=== PATIENT | female | born 1950 | race African-American/Black ===

== ENCOUNTER → 2016-10-16 | Outpatient (CLI) | payer MEDICARE, MEDICAID ==
[~2016-10-16] MED LIST: GADOBENATE DIMEGLUMINE 529 MG/ML 10ML IV ONE; HYDR1TAB4 PO; LORA2TAB2 PO; OXCA300T31 PO
== END | disposition home or self-care (01) ==
LOC: MRI 07:51
PROVIDERS: ATTEND Neurological Surgery
DX: M47.816 Spondylosis without myelopathy or radiculopathy, lumbar region (principal)
CPT/HCPCS: 72158; A9577

== ENCOUNTER → 2016-10-20 | Outpatient (CLI) | payer MEDICARE, MEDICAID ==
[~2016-10-20] MED LIST changes: -GADOBENATE DIMEGLUMINE 529 MG/ML 10ML IV ONE
== END | disposition home or self-care (01) ==
LOC: RAD 08:48
PROVIDERS: ATTEND Neurological Surgery
DX: M47.816 Spondylosis without myelopathy or radiculopathy, lumbar region (principal); M43.26 Fusion of spine, lumbar region
CPT/HCPCS: 72114

== ENCOUNTER → 2017-05-15 | Outpatient (CLI) | payer MEDICARE, MEDICAID | END | disposition home or self-care (01) | LOC: MAMMO 10:19 | PROVIDERS: ATTEND Family Medicine | DX: Z12.31 Encounter for screening mammogram for malignant neoplasm of breast (principal) | CPT/HCPCS: G0202 ==

== ENCOUNTER → 2017-08-21 | Outpatient (CLI) | payer MEDICARE, MEDICAID ==
[~2017-08-21] MED LIST changes: -HYDR1TAB4 PO; -LORA2TAB2 PO; +LOSA100T14 PO; -OXCA300T31 PO; +RISP1TAB26 PO
== END | disposition home or self-care (01) ==
LOC: RAD 11:41
PROVIDERS: ATTEND Neurological Surgery
DX: M47.896 Other spondylosis, lumbar region (principal)
CPT/HCPCS: 72114

== ENCOUNTER → 2017-09-25 | Outpatient (CLI) | payer MEDICARE, MEDICAID | END | disposition home or self-care (01) | LOC: MRI 09:02 | PROVIDERS: ATTEND Neurological Surgery | DX: M47.897 Other spondylosis, lumbosacral region (principal); M24.28 Disorder of ligament, vertebrae; M25.78 Osteophyte, vertebrae; M48.061 Spinal stenosis, lumbar region without neurogenic claudication; M47.896 Other spondylosis, lumbar region | CPT/HCPCS: 72148 ==

== ENCOUNTER → 2018-07-23 | Outpatient (CLI) | payer MEDICARE, MEDICAID | END | disposition home or self-care (01) | LOC: MRI 07:55 | PROVIDERS: ATTEND Neurological Surgery | DX: M47.816 Spondylosis without myelopathy or radiculopathy, lumbar region (principal) | CPT/HCPCS: 72148 ==

== ENCOUNTER → 2018-12-02 | Outpatient (CLI) | payer MEDICARE, MEDICAID ==
[~2018-12-02] MED LIST changes: -LOSA100T14 PO; +LOSA100T32 PO
== END | disposition home or self-care (01) ==
LOC: RAD 10:57
PROVIDERS: ATTEND Family Medicine
DX: R07.89 Other chest pain (principal); M41.9 Scoliosis, unspecified
CPT/HCPCS: 71045

== ENCOUNTER 2019-11-23 15:19 | Emergency (ER) | payer MEDICARE, MEDICAID ==
[~2019-11-23] VITALS: Ht 157.5 cm; Wt 69.0 kg
[2019-11-23 15:31] VITALS: BP 106/66
[2019-11-23] MEDS ORDERED: TETANUS, DIPHTHERIA, PERTUSSIS VAC/PF 0.5ML (>7YR OLD) IM ONE (17:00)
[2019-11-23] MEDS ORDERED: ACETAMINOPHEN WITH CODEINE 300/30MG TABLET PO ONE (17:00)
== END 2019-11-23 18:06 | disposition home or self-care (01) ==
LOC: ER 15:19
DX: S61.101A Unspecified open wound of right thumb with damage to nail, initial encounter (principal); W26.8XXA Contact with other sharp object(s), not elsewhere classified, initial encounter; Y93.89 Activity, other specified; Y92.89 Other specified places as the place of occurrence of the external cause; Y99.8 Other external cause status; I10 Essential (primary) hypertension; Z90.710 Acquired absence of both cervix and uterus; I82.409 Acute embolism and thrombosis of unspecified deep veins of unspecified lower extremity; I24.0 Acute coronary thrombosis not resulting in myocardial infarction
CPT/HCPCS: 90471; 90715; 99283

== ENCOUNTER 2024-02-12 16:16 | Emergency (ER) | payer OTHER, MEDICAID ==
[~2024-02-12] VITALS: Ht 157.5 cm; Wt 73.0 kg
[~2024-02-12 16:16] MED LIST changes: -LOSA100T32 PO; +LOSA100T33 PO; +RISP-28 PO; -RISP1TAB26 PO
[2024-02-12 16:26] VITALS: BP 146/83; PULSE 92; RESP 15; TEMP 98.3; O2SAT 98
[2024-02-12] MEDS: IBUPROFEN 600MG TABLET PO ONE (18:49)
[2024-02-12] MEDS: TRAMADOL 50MG TABLET PO ONE (18:50)
[2024-02-12] MEDS ORDERED: MELO-104 MT (19:52)
== END 2024-02-12 20:05 | disposition home or self-care (01) ==
LOC: ER 16:16
DX: G89.29 Other chronic pain (principal); M54.50 Low back pain, unspecified; I10 Essential (primary) hypertension; Z90.710 Acquired absence of both cervix and uterus; Z98.890 Other specified postprocedural states; Z86.718 Personal history of other venous thrombosis and embolism
CPT/HCPCS: 99283

== ENCOUNTER 2024-08-03 05:31 | Emergency (ER) | payer OTHER, MEDICAID ==
[~2024-08-03] VITALS: Ht 170.2 cm; Wt 73.0 kg
[~2024-08-03 05:31] MED LIST changes: +MELO-104 MT
[2024-08-03 05:32] VITALS: O2SAT 100
[2024-08-03 06:20] LABS: BASOPHILS % 1.2 % (0.0-2.0); EOSINOPHILS % 3.3 % (0.0-5.0); HEMATOCRIT. 34.7 % (36.0-48.0); HEMOGLOBIN. 11.6 g/dL (12.0-16.0); LYMPHOCYTES % 25.5 % (20.0-50.0); MEAN CORPUSCULAR HEMOGLOBIN 29.4 pg (28.0-32.0); MEAN CORPUSCULAR HGB CONC 33.4 g/dL (31.0-37.0); MEAN CORPUSCULAR VOLUME 87.9 fL (81.0-99.0); MEAN PLATELET VOLUME 8.4 fl (7.4-10.4); MONOCYTES % 10.2 % (2.0-8.0); NEUTROPHILS % 59.8 % (40.0-76.0); PLATELET 243 x1000/uL (130-400); RED BLOOD CELL COUNT 3.95 mill/uL (4.2-5.4); RED CELL DISTRIBUTION WIDTH 14.5 % (11.6-14.6); WHITE BLOOD COUNT 4.1 x1000/uL (4.5-11.0)
[2024-08-03 06:27] LABS: POTASSIUM 3.1 mEq/L (3.5-5.1)
[2024-08-03 06:28] LABS: CALCIUM 9.9 mg/dL (8.7-10.4)
[2024-08-03 06:33] LABS: CREATININE 1.3 mg/dL (0.6-1.0)
[2024-08-03] MEDS ORDERED: T3 PO (08:47)
[2024-08-03] MEDS ORDERED: CYCL10TA21 MT (08:47)
[2024-08-03 08:50] VITALS: BP 112/68; PULSE 95; RESP 18; TEMP 36.7
== END 2024-08-03 09:30 | disposition home or self-care (01) ==
LOC: ER 05:31
DX: G89.29 Other chronic pain (principal); Z79.1 Long term (current) use of non-steroidal anti-inflammatories (NSAID); Z79.899 Other long term (current) drug therapy; Z90.710 Acquired absence of both cervix and uterus
CPT/HCPCS: 36415; 80048; 82550; 85025; 99283

== ENCOUNTER 2024-08-07 00:39 | Inpatient (IN) | payer OTHER, MEDICAID, MEDICARE ==
[2024-08-07] VITALS (10 sets, daily range): BP systolic 131–158; BP diastolic 76–94; PULSE 84–103; RESP 11–22; TEMP 36.8–37.2; O2SAT 95–100
[~2024-08-07] VITALS: Ht 165.1 cm; Wt 73.5 kg
[~2024-08-07 00:39] MED LIST changes: +CYCL10TA21 MT; +T3 PO
[2024-08-07 01:13] LABS: BASOPHILS % 0.7 % (0.0-2.0); EOSINOPHILS % 1.1 % (0.0-5.0); HEMATOCRIT. 37.9 % (36.0-48.0); HEMOGLOBIN. 12.9 g/dL (12.0-16.0); LYMPHOCYTES % 15.8 % (20.0-50.0); MEAN CORPUSCULAR HEMOGLOBIN 29.8 pg (28.0-32.0); MEAN CORPUSCULAR HGB CONC 33.9 g/dL (31.0-37.0); MEAN CORPUSCULAR VOLUME 87.8 fL (81.0-99.0); MEAN PLATELET VOLUME 8.2 fl (7.4-10.4); MONOCYTES % 7.9 % (2.0-8.0); NEUTROPHILS % 74.5 % (40.0-76.0); PLATELET 236 x1000/uL (130-400); RED BLOOD CELL COUNT 4.32 mill/uL (4.2-5.4); RED CELL DISTRIBUTION WIDTH 14.6 % (11.6-14.6); WHITE BLOOD COUNT 5.4 x1000/uL (4.5-11.0)
[2024-08-07 01:21] LABS: CHLORIDE 94 mEq/L (98-107); POTASSIUM 3.2 mEq/L (3.5-5.1); SODIUM 128 mEq/L (136-145)
[2024-08-07 01:22] LABS: CALCIUM 9.6 mg/dL (8.7-10.4); CARBON DIOXIDE 26 mEq/L (21-32)
[2024-08-07 01:27] LABS: CREATININE 0.7 mg/dL (0.6-1.0); GLUCOSE 139 mg/dL (70-105); UREA NITROGEN BLOOD 5 mg/dL (9-23)
[2024-08-07 01:29] LABS: TROPONIN I HIGH SENSITIVITY 15 ng/L (3.0-34)
[2024-08-07 01:37] LABS: PARTIAL THROMBOPLASTIN TIME 27.3 sec (23.4-31.0); PROTHROMBIN TIME 10.9 sec (9.6-11.0)
[2024-08-07 01:52] LABS: ETHANOL BLOOD < 10 mg/dL (<10)
[2024-08-07] MEDS: SODIUM CHLORIDE 0.9% 500 ML IV ONE (02:17)
[2024-08-07] MEDS: KCL 20MEQ/100ML PREMIX 100 ML IV NR (02:18)
[2024-08-07] MEDS: TIZANIDINE HCL 2MG TABLET PO NR (03:53)
[2024-08-07] MEDS: LAMOTRIGINE 25MG TABLET PO SCH (03:53)
[2024-08-07 04:53] LABS: CLARITY URINE CLEAR (CLEAR); COLOR URINE YELLOW (YELLOW); GLUCOSE URINE NEGATIVE (NEGATIVE); KETONES URINE NEGATIVE (NEGATIVE); LEUKOCYTE ESTERASE URINE NEGATIVE (NEGATIVE); NITRITE URINE NEGATIVE (NEGATIVE); OCCULT BLOOD URINE NEGATIVE (NEGATIVE); PH URINE 7.5 (4.5-8.0); PROTEIN URINE NEGATIVE (NEGATIVE); SPECIFIC GRAVITY URINE 1.005 (1.005-1.030); UROBILINOGEN URINE 0.2 E.U./dL (0.2-1.0)
[2024-08-07 04:56] LABS: *AMPHETAMINES SCREEN URINE NEGATIVE (NEGATIVE); *BARBITURATES SCREEN URINE NEGATIVE (NEGATIVE); *BENZODIAZEPINES SCREEN URINE PRESUMPTIVE POSITIVE (NEGATIVE); *COCAINE SCREEN URINE NEGATIVE (NEGATIVE); CANNABINOID URINE SCREEN NEGATIVE (NEGATIVE); ECSTASY MDMA SCREEN URINE NEGATIVE (NEGATIVE); METHADONE URINE SCREEN NEGATIVE (NEGATIVE); OPIATES URINE SCREEN NEGATIVE (NEGATIVE); PHENCYCLIDINE URINE SCREEN NEGATIVE (NEGATIVE)
[2024-08-07] MEDS ORDERED: ONDANSETRON HCL 4MG/2ML INJ IV PRN (10:15)
[2024-08-07] MEDS ORDERED: ZOLPIDEM TARTRATE 5MG TABLET PO PRN (10:15)
[2024-08-07] MEDS ORDERED: CEFTRIAXONE 1GM/50ML 50 ML IV SCH (11:00)
[2024-08-07] MEDS: ENOXAPARIN 40MG/0.4ML SYR SUBCUT SCH (12:45)
[2024-08-07] MEDS: SODIUM CHLORIDE 0.9% 1,000 ML IV SCH (13:09)
[2024-08-07] MEDS: LEVETIRACETAM 1000MG PREMIX 100 ML IV SCH (14:30)
[2024-08-07] MEDS ORDERED: LEVETIRACETAM 1,000MG in NACL 100ML PREMIX IV ONE (14:30)
[2024-08-07 14:54] LABS: THYROID STIMULATING HORMONE 40.59 uIU/mL (0.55-4.78)
[2024-08-07] MEDS: CEFTRIAXONE 1GM/50ML 50 ML IV SCH (16:52)
[2024-08-07 17:22] LABS: TROPONIN I HIGH SENSITIVITY 13 ng/L (3.0-34)
[2024-08-07] MEDS: ACETAMINOPHEN 325MG TABLET PO PRN (17:50)
[2024-08-07] MEDS: CYCLOBENZAPRINE 10MG TABLET PO PRN (20:06)
[2024-08-07] MEDS: LEVETIRACETAM 500MG TABLET PO SCH (20:53)
[2024-08-07] MEDS: HYDROCODONE/ACETAMINOPHEN 10/325MG TABLET PO PRN (21:51)
[2024-08-08] VITALS (12 sets, daily range): BP systolic 93–164; BP diastolic 73–94; PULSE 88–111; RESP 11–24; TEMP 36.5–36.8; O2SAT 87–98
[2024-08-08 02:31] LABS: TROPONIN I HIGH SENSITIVITY 13 ng/L (3.0-34)
[2024-08-08 05:54] LABS: CALCIUM 9.2 mg/dL (8.7-10.4); CHLORIDE 101 mEq/L (98-107); POTASSIUM 3.9 mEq/L (3.5-5.1); SODIUM 134 mEq/L (136-145)
[2024-08-08 05:55] LABS: CARBON DIOXIDE 25 mEq/L (21-32)
[2024-08-08 06:00] LABS: CREATININE 0.8 mg/dL (0.6-1.0); GLUCOSE 95 mg/dL (70-105); UREA NITROGEN BLOOD 7 mg/dL (9-23)
[2024-08-08 06:25] LABS: BASOPHILS % 0.7 % (0.0-2.0); EOSINOPHILS % 1.5 % (0.0-5.0); HEMATOCRIT. 35.5 % (36.0-48.0); LYMPHOCYTES % 32.8 % (20.0-50.0); MEAN CORPUSCULAR HGB CONC 33.9 g/dL (31.0-37.0); MEAN CORPUSCULAR VOLUME 88.6 fL (81.0-99.0); MEAN PLATELET VOLUME 8.8 fl (7.4-10.4); MONOCYTES % 9.2 % (2.0-8.0); NEUTROPHILS % 55.8 % (40.0-76.0); PLATELET 281 x1000/uL (130-400); RED BLOOD CELL COUNT 4.01 mill/uL (4.2-5.4); RED CELL DISTRIBUTION WIDTH 14.3 % (11.6-14.6); WHITE BLOOD COUNT 6.8 x1000/uL (4.5-11.0)
[2024-08-08] MEDS: LEVOTHYROXINE SODIUM 50MCG TABLET PO SCH (08:23)
[2024-08-08] MEDS ORDERED: PANTOPRAZOLE SODIUM 40 MG/VIAL IV SCH (09:00)
[2024-08-08] MEDS: LOSARTAN 50 MG TABLET PO SCH (09:19)
[2024-08-08] MEDS: RISPERIDONE 1MG TABLET PO SCH (14:57)
[2024-08-08] MEDS: CLONIDINE 0.1MG TABLET PO PRN (23:12)
[2024-08-09] VITALS (9 sets, daily range): BP systolic 150–168; BP diastolic 75–107; PULSE 90–103; RESP 9–22; TEMP 36.6–36.7; O2SAT 92–99
[2024-08-09 06:48] LABS: EOSINOPHILS % 1.7 % (0.0-5.0); HEMATOCRIT. 38.4 % (36.0-48.0); MEAN CORPUSCULAR HGB CONC 33.9 g/dL (31.0-37.0); MEAN CORPUSCULAR VOLUME 88.4 fL (81.0-99.0); MEAN PLATELET VOLUME 8.5 fl (7.4-10.4); MONOCYTES % 9.2 % (2.0-8.0); NEUTROPHILS % 56.1 % (40.0-76.0); PLATELET 268 x1000/uL (130-400); RED BLOOD CELL COUNT 4.34 mill/uL (4.2-5.4); RED CELL DISTRIBUTION WIDTH 14.6 % (11.6-14.6); WHITE BLOOD COUNT 5.2 x1000/uL (4.5-11.0)
[2024-08-09 07:02] LABS: CARBON DIOXIDE 28 mEq/L (21-32); CHLORIDE 96 mEq/L (98-107); POTASSIUM 3.6 mEq/L (3.5-5.1); SODIUM 132 mEq/L (136-145)
[2024-08-09 07:03] LABS: CALCIUM 9.4 mg/dL (8.7-10.4)
[2024-08-09 07:07] LABS: CREATININE 0.7 mg/dL (0.6-1.0)
[2024-08-09 07:08] LABS: GLUCOSE 105 mg/dL (70-105); UREA NITROGEN BLOOD 7 mg/dL (9-23)
[2024-08-09] MEDS ORDERED: LEVO50TA8 PO (12:38)
[2024-08-09] MEDS ORDERED: KEPP500 PO (12:38)
== END 2024-08-09 14:26 | disposition home or self-care (01) | DRG 100 ==
LOC: ER 00:39 → 5EST 02:42 → EDBEDREQ 03:04 → EDBEDREQTM 03:04 → EDBEDREQSVC 08:58
PROVIDERS: ADMIT Internal Medicine; ATTEND Internal Medicine
DX: G40.909 Epilepsy, unspecified, not intractable, without status epilepticus (principal); G92.8 Other toxic encephalopathy; J96.01 Acute respiratory failure with hypoxia; E87.1 Hypo-osmolality and hyponatremia; E87.6 Hypokalemia; I10 Essential (primary) hypertension; G25.0 Essential tremor; G89.29 Other chronic pain; E03.9 Hypothyroidism, unspecified; Z79.899 Other long term (current) drug therapy; Z87.440 Personal history of urinary (tract) infections; Z90.710 Acquired absence of both cervix and uterus; Z82.49 Family history of ischemic heart disease and other diseases of the circulatory system; Z91.148 Patient's other noncompliance with medication regimen for other reason
CPT/HCPCS: 36415; 71045; 80048; 80061; 80305; 80320; 81003; 82533; 83880; 84443; 84484; 85025; 93005; 93970; 94070; 99285; A4606; J0696; J1650; J1953; J3480; G0480